=== PATIENT | male | born 1975 | race Caucasian/White ===

== ENCOUNTER 2016-07-24 13:26 | Emergency (ER) | payer OTHER ==
[2016-07-24 16:37] LABS: BASOPHIL 0.4 % (0-2); HCT 41.5 % (42.0-52.0); HGB 14.3 g/dl (13.2-18.0); LYMPHOCYTE 21.2 % (15-48); MCH 28.1 pg (25.0-31.0); MCHC 34.5 g/dL (32.0-36.0); MCV 81.7 fL (78.0-100.0); MONOCYTE 7.4 % (0-12); MPV 9.3 fL (6.0-9.5); PLT 299 K/uL (150-400); RBC 5.08 M/uL (4.70-6.00); RDW 12.7 % (11.5-14.0); WBC 11.6 K/uL (4.0-10.5)
[2016-07-24 16:53] LABS: ALBUMIN 4.1 g/dL (3.5-5.0); BILIRUBIN - TOTAL 0.3 mg/dL (0.1-1.0); CREATININE 0.7 mg/dL (0.7-1.2); GLOBULIN (CALCULATION) 2.8 g/dL (2.2-4.2); POTASSIUM 4.1 mmol/L (3.5-5.1); TOTAL PROTEIN 6.9 g/dL (6.4-8.3)
== END 2016-07-24 17:48 | disposition home or self-care (01) ==
LOC: FER 13:26
PROVIDERS: Internal Medicine
DX: A04.8 Other specified bacterial intestinal infections (principal)
CPT/HCPCS: 36415; 71020; 80053; 82150; 83690; 85025; 87339; 93005